=== PATIENT | male | born 1990 | race Two or more races ===

== ENCOUNTER 2017-05-08 09:29 | Emergency (ER) | payer MEDICAID ==
[~2017-05-08] VITALS: Ht 172.7 cm; Wt 86.2 kg
[2017-05-08 10:37] VITALS: BP 136/84
== END 2017-05-08 11:23 | disposition home or self-care (01) ==
LOC: ER 09:29
DX: K02.9 Dental caries, unspecified (principal); L03.211 Cellulitis of face

== ENCOUNTER 2017-06-17 14:28 | Emergency (ER) | payer SELFPAY ==
[~2017-06-17] VITALS: Ht 172.7 cm; Wt 81.6 kg
[2017-06-17 14:33] VITALS: BP 129/79
== END 2017-06-17 14:57 | disposition home or self-care (01) ==
LOC: ER 14:38
DX: K02.9 Dental caries, unspecified (principal); F17.210 Nicotine dependence, cigarettes, uncomplicated